=== PATIENT | female | born 1990 | race Caucasian/White ===

== ENCOUNTER 2019-07-01 17:23 | Observation (INO) | payer OTHER ==
[~2019-07-01] VITALS: Ht 152.4 cm; Wt 64.0 kg
[2019-07-01] MEDS ORDERED: BETAMETH ACET/BETAMETH NA PH 30 MG/5 ML VIAL IM SCH (17:30)
[2019-07-01 18:20] VITALS: BP 121/70
[2019-07-01] MEDS ORDERED: BETAMETH ACET/BETAMETH NA PH 30 MG/5 ML VIAL IM ONE (18:46)
[2019-07-01] MEDS ORDERED: MAG SULF 20 GM/H2O PREMIX DRIP 500 ML IV SCH ×2 (20:10→20:20)
[2019-07-01] MEDS ORDERED: MAG SULF 2000 MG/WATER PREMIX 100 ML IV SCH (20:10)
[2019-07-01 20:44] LABS: BASOPHILS % (AUTO) 0.4 % (0.0-2.0); EOSINOPHILS % (AUTO) 0.4 % (0.0-4.0); HEMATOCRIT 33.4 % (36-48); HEMOGLOBIN 11.2 g/dL (12.0-16.0); LYMPHOCYTES # (AUTO) 1.3 K/uL (2.5-16.5); LYMPHOCYTES % (AUTO) 14.7 % (20.5-51.1); MEAN CORPUSCULAR HEMOGLOBIN 30 pg (27-31); MEAN CORPUSCULAR HGB CONC 34 g/dL (33-37); MEAN CORPUSCULAR VOLUME 89.6 fL (80-94); MONOCYTES # (AUTO) 0.6 K/uL (0.8-1.0); MONOCYTES % (AUTO) 6.2 % (1.7-9.3); NEUTROPHILS # (AUTO) 7.2 K/uL (1.8-7.7); NEUTROPHILS % (AUTO) 78.3 % (42.2-75.2); PLATELET COUNT (AUTO) 215 K/uL (140-450); RED BLOOD CELL COUNT(AUTO) 3.73 MIL/uL (4.20-5.40); RED CELL DISTRIBUTION WIDTH 13.2 % (11.6-13.7); WHITE BLOOD COUNT (AUTO) 9.2 K/uL (4.8-10.8)
[2019-07-01] MEDS ORDERED: LACTATED RINGERS 1,000 ML IV SCH (20:55)
[2019-07-01 21:04] LABS: ALBUMIN 2.9 g/dL (3.4-5.0); ANION GAP 12.2 (8-16); CARBON DIOXIDE 25.5 mmol/L (21-32); CREATININE 0.7 mg/dL (0.6-1.3); MAGNESIUM 1.6 mg/dL (1.8-2.4); POTASSIUM 3.7 mmol/L (3.5-5.1); TOTAL BILIRUBIN 0.7 mg/dL (0.0-1.0)
--- NOTE | 2019-07-02 08:51 | NUR ---
PATIENT HAS BEEN SCREENED AND CATEGORIZED LOW NUTRITION RISK. PATIENT WILL BE SEEN WITHIN 7 DAYS OF ADMISSION. 07/08/[address]
[2019-07-02] MEDS ORDERED: BETAMETH ACET/BETAMETH NA PH 30 MG/5 ML VIAL IM SCH (18:00)
== END 2019-07-02 19:00 | disposition home or self-care (01) ==
LOC: MFCC 17:23
PROVIDERS: ADMIT Obstetrics & Gynecology; ATTEND Obstetrics & Gynecology
DX: O62.9 Abnormality of forces of labor, unspecified (principal); Z3A.33 33 weeks gestation of pregnancy
CPT/HCPCS: 36415; 76817; 80053; 82731; 83735; 85025; 86886; 86900; 86901; 96365; 96366; 96372; G0378; J0702; J3475; J7120; Q0092

== ENCOUNTER 2019-08-03 19:03 | Inpatient (IN) | payer OTHER ==
[~2019-08-03] VITALS: Ht 152.4 cm; Wt 66.7 kg
[2019-08-03] MEDS ORDERED: OXYTOCIN 20 UNITS/LR PREMIX 1,000 ML IV SCH (20:00)
[2019-08-03] MEDS ORDERED: METHYLERGONOVINE 0.2 MG/ML AMP IM PRN (20:00)
[2019-08-03] MEDS ORDERED: fentaNYL 0.05 MG/ML VIAL IVP PRN (20:00)
[2019-08-03] MEDS ORDERED: MORPHINE SULFATE 5 MG/ML VIAL IVP PRN (20:00)
[2019-08-03] MEDS ORDERED: AMPICILLIN 2,000 MG in NACL 0.9% MINI-BAG PLUS 100 ML IV ONE (20:00)
[2019-08-03] MEDS ORDERED: PROMETHAZINE 25 MG/ML VIAL IVP PRN (20:00)
[2019-08-03 20:46] LABS: APPEARANCE,URINE CLEAR (CLEAR); BILIRUBIN,URINE NEGATIVE (NEGATIVE); BLOOD, URINE 3+ (NEGATIVE); COLOR,URINE YELLOW (YELLOW); LEUKOCYTE ESTERASE ,URINE NEGATIVE (NEGATIVE); NITRITE, URINE NEGATIVE (NEGATIVE); UGLUCOSE NEGATIVE (NEGATIVE)
[2019-08-03 20:46] LABS: BASOPHILS % (AUTO) 0.3 % (0.0-2.0); EOSINOPHILS % (AUTO) 0.3 % (0.0-4.0); HEMATOCRIT 34.2 % (36-48); HEMOGLOBIN 11.4 g/dL (12.0-16.0); LYMPHOCYTES # (AUTO) 2.3 K/uL (2.5-16.5); LYMPHOCYTES % (AUTO) 25.3 % (20.5-51.1); MEAN CORPUSCULAR HEMOGLOBIN 30 pg (27-31); MEAN CORPUSCULAR HGB CONC 33 g/dL (33-37); MEAN CORPUSCULAR VOLUME 89.4 fL (80-94); MONOCYTES # (AUTO) 0.9 K/uL (0.8-1.0); MONOCYTES % (AUTO) 9.4 % (1.7-9.3); NEUTROPHILS # (AUTO) 5.9 K/uL (1.8-7.7); NEUTROPHILS % (AUTO) 64.7 % (42.2-75.2); PLATELET COUNT (AUTO) 245 K/uL (140-450); RED BLOOD CELL COUNT(AUTO) 3.82 MIL/uL (4.20-5.40); RED CELL DISTRIBUTION WIDTH 13.7 % (11.6-13.7); WHITE BLOOD COUNT (AUTO) 9.1 K/uL (4.8-10.8)
[2019-08-03 20:56] LABS: RBC,URINE 80-100 /HPF (0-5); WBC,URINE 0-5 /HPF (0-5)
[2019-08-03 21:03] LABS: ALBUMIN 2.8 g/dL (3.4-5.0); ANION GAP 16.4 (8-16); CARBON DIOXIDE 21.2 mmol/L (21-32); CREATININE 0.9 mg/dL (0.6-1.3); POTASSIUM 3.6 mmol/L (3.5-5.1); TOTAL BILIRUBIN 0.7 mg/dL (0.0-1.0)
[2019-08-03] MEDS: LACTATED RINGERS 1,000 ML IV SCH (21:08)
[2019-08-03] MEDS ORDERED: AMPICILLIN 2,000 MG VIAL ONE (21:10)
[2019-08-03 23:59] VITALS: BP 113/68
[2019-08-04] MEDS ORDERED: PREN-380 PO (00:06)
[2019-08-04] MEDS ORDERED: AMPICILLIN 1,000 MG VIAL ONE ×6 (00:50→20:49)
[2019-08-04] MEDS: AMPICILLIN 1,000 MG in NACL 0.9% MINI-BAG PLUS 50 ML IV SCH ×5 (01:01→16:40)
[2019-08-04] MEDS: LACTATED RINGERS 1,000 ML IV SCH (07:06)
--- NOTE | 2019-08-04 09:26 | NUR ---
PATIENT HAS BEEN SCREENED AND CATEGORIZED LOW NUTRITION RISK. PATIENT WILL BE SEEN WITHIN 7 DAYS OF ADMISSION. 08/10/[address]
[2019-08-04] MEDS ORDERED: MORPHINE SULFATE 10 MG/ML VIAL ONE (20:01)
[2019-08-04] MEDS ORDERED: LIDOCAINE 1% 500 MG/50 ML VIAL ONE (20:32)
[2019-08-04] MEDS ORDERED: OXYTOCIN 10 UNITS/ML VIAL IM PRN (22:30)
[2019-08-04] MEDS ORDERED: METHYLERGONOVINE 0.2 MG TAB PO PRN (22:30)
[2019-08-04] MEDS ORDERED: METHYLERGONOVINE 0.2 MG/ML AMP IM PRN (22:30)
[2019-08-04] MEDS ORDERED: DOCUSATE SODIUM 100 MG GELCAP PO PRN (22:30)
[2019-08-04] MEDS ORDERED: MEASLES, MUMPS, AND RUBELLA 1 VIAL SQVAC PRN (22:30)
[2019-08-04] MEDS ORDERED: SIMETHICONE 80 MG TAB.CHEW PO PRN (22:30)
[2019-08-04] MEDS ORDERED: BISACODYL 5 MG TABEC PO PRN (22:30)
[2019-08-04] MEDS ORDERED: IBUPROFEN 600 MG TAB PO PRN ×2 (22:30)
[2019-08-04] MEDS ORDERED: BENZOCAINE/MENTHOL 20%-0.5% 60 GM CAN TP PRN (22:30)
[2019-08-04] MEDS ORDERED: IBUPROFEN 800 MG TAB PO PRN (22:30)
[2019-08-04] MEDS ORDERED: OXYTOCIN 20 UNITS/LR PREMIX 1,000 ML IV ONE (22:41)
[2019-08-05 09:10] LABS: HEMATOCRIT 26.5 % (36-48); HEMOGLOBIN 8.8 g/dL (12.0-16.0)
== END 2019-08-06 10:10 | disposition home or self-care (01) | DRG 807 ==
LOC: MLD 19:03 → MFCC 08-05 00:02
PROVIDERS: ADMIT Obstetrics & Gynecology; ATTEND Obstetrics & Gynecology
PROC: 10E0XZZ Delivery of Products of Conception, External Approach (ICD-10-PCS; principal; 2019-08-04)
PROC: 0KQM0ZZ Repair Perineum Muscle, Open Approach (ICD-10-PCS; 2019-08-04)
PROC: 3E0134Z Introduction of Serum, Toxoid and Vaccine into Subcutaneous Tissue, Percutaneous Approach (ICD-10-PCS; 2019-08-04)
PROC: 3E0234Z Introduction of Serum, Toxoid and Vaccine into Muscle, Percutaneous Approach (ICD-10-PCS; 2019-08-04)
DX: O99.824 Streptococcus B carrier state complicating childbirth (principal); Z37.0 Single live birth; Z3A.38 38 weeks gestation of pregnancy; O70.1 Second degree perineal laceration during delivery; O42.92 Full-term premature rupture of membranes, unspecified as to length of time between rupture and onset of labor; O71.89 Other specified obstetric trauma
CPT/HCPCS: 36415; 59409; 80053; 81001; 85018; 85025; 86592; 86762; 86886; 86900; 86901; 87340; 87653-90; J0290; J2001; J2270; J2550; J2590; J3010; J7120